=== PATIENT | female | born 1960 | race Caucasian/White ===

== ENCOUNTER 2019-01-12 06:06 | Day surgery (SDC) | payer BC ==
[2019-01-11 08:36] VITALS: BMI 32.0
--- NOTE | 2019-01-12 07:21 | HP ---
History & Physical Update - History History: No Change - Physical Physical: No Change - Assessment Assessment: No Change - Plan Plan: No Change (H&P consistent with 01/06/19 Consent signed and witnessed All questions answered)
[2019-01-12] MEDS ORDERED: IBUPROFEN 600 MG TABLET (FP) PO PRN (07:22)
[2019-01-12] MEDS ORDERED: oxyCODONE HCL 5 MG TABLET PO PRN (07:22)
[2019-01-12] MEDS ORDERED: IBUPROFEN 800 MG/8 ML IJ IVPB PRN (07:22)
[2019-01-12] MEDS ORDERED: ONDANSETRON 4 MG/2 ML VIAL IVPUSH PRN (07:22)
--- NOTE | 2019-01-12 07:24 | OP ---
Operative Note - Note: Operative Date: 01/12/19 Pre-Operative Diagnosis: 58yo P2 with PMB, thick endometrium Operation: Hysteroscopy Findings: Scared uterus and cervix Uterine polyp and fibrous and scar tissue Post-Operative Diagnosis: Same as Pre-op Surgeon: Chica Gustafson Anesthesiologist/SHOE SPRAYER: Alanna Ballard Anesthesia: MAC Specimens Removed: Endometrial scar tissue. Endometrial curretings. Endometrial polyp Estimated Blood Loss (mls): 1 Drains, Volume Out (mls): 200 Fluid Volume Replaced (mls): 1,000 Operative Report Dictated: Yes
[2019-01-12] MEDS ORDERED: PROPOFOL 20 ML ONE ×2 (07:25→07:42)
[2019-01-12] MEDS ORDERED: DEXAMETHASONE SOD PHOSPHATE 4 MG/1 ML VIAL ONE (07:25)
[2019-01-12] MEDS ORDERED: LIDOCAINE HCL/PF 2% SDV 5ML VIAL ONE (07:25)
[2019-01-12] MEDS ORDERED: SUCCINYLCHOLINE CHLORIDE 200 MG/10 ML VIAL ONE (07:26)
[2019-01-12] MEDS ORDERED: MIDAZOLAM HCL 2 MG/2 ML SINGLE DOSE VIAL ONE (07:26)
[2019-01-12] MEDS ORDERED: ELECTROLYTE-148 SOLN 1,000 ML IV SCH (07:30)
[2019-01-12] MEDS ORDERED: ePHEDrine SULFATE 50 MG/1 ML AMPULE ONE (07:59)
[2019-01-12] MEDS ORDERED: KETOROLAC TROMETHAMINE 30 MG/1 ML VIAL ONE (08:07)
[2019-01-12] MEDS ORDERED: PHENYLEPHRINE HCL 10 MG/1 ML SINGLE DOSE VIAL ONE (08:11)
[2019-01-12] MEDS ORDERED: ERTAPENEM SODIUM 1 GM VIAL ONE (08:47)
[2019-01-12 10:20] VITALS: TEMP 97.3
[2019-01-12] MEDS ORDERED: LACTATED RINGERS SOLUTION 1,000 ML IV SCH (10:45)
[2019-01-12 11:51] VITALS: BP 116/69; PULSE 100
--- NOTE | 2019-01-12 20:28 | OP ---
DATE OF OPERATION: 01/12/2019 PREOPERATIVE DIAGNOSES: A 58-year-old para 2 with postmenopausal bleeding and thick endometrium. SURGERY: Hysteroscopy, lysis of scar tissue and adhesions, polypectomy, partial myomectomy. FINDINGS: Scarred uterus and cervix, uterine polyp, and fibrous scar tissue inside the uterus. POSTOPERATIVE DIAGNOSES: A 58-year-old para 2 with postmenopausal bleeding and thick endometrium. SURGEON: Chica Gustafson MD ANESTHESIOLOGIST: GAYATHRI Thurman ANESTHESIA: MAC. SPECIMEN REMOVED: Endometrial scar tissue, endometrial curettings, endometrial polyps. DESCRIPTION OF OPERATIVE PROCEDURE: After assuring informed consent, patient was brought to the operating room where she was placed in dorsal lithotomy position. Perineum and vagina were prepped and draped in sterile fashion. Cervix was gradually dilated to accommodate 6.3-mm hysteroscope. Symphion hysteroscope was assembled, wide balanced, and primed and inserted into the uterine cavity without any difficulty. The survey of the endometrium was performed with the above findings. The resectoscope was introduced through the operative channel, and resection of the scar tissue, polyps, and some fibrous material was performed until uterine cavity was mostly clear of polyps and scar tissue. Uterine cavity was found to be very small, approximately 5 cm. Subsequently, the instruments were removed from uterus, cervix, and vagina. Instrument, sponge count was correct x2. Excellent hemostasis was achieved. Estimated blood loss was 1 mL. Urine output was 200 mL. Patient received 1000 mL of IV fluids. Fluid deficit was 100 mL. Patient was brought to the recovery room in stable condition. Dayron [id number]
--- NOTE | 2019-01-13 16:49 | PATH ---
Surgical Pathology Report Patient Name: ROJAS BISHOP Med. Rec. #: [id number] /Age/Gender: 1960 (Age: 58) / F Account: [id number] Location: [facility] SURGICAL Taken: 01/12/2019 Received: 01/12/2019 Reported: 01/13/2019 Physicians: Chica Gustafson M.D. Specimen(s) Received ENDOMETRIAL POLYP Clinical History Endometrial polyp, abnormal urine/vaginal bleeding Final Diagnosis ENDOMETRIAL POLYP, POLYPECTOMY FRAGMENTS OF ENDOCERVICAL POLYP. SEPARATE FRAGMENTS OF ENDOCERVICAL TISSUE WITH SQUAMOUS METAPLASIA. NO ENDOMETRIAL TISSUE PRESENT. Electronically Signed John Smith M.D. Gross Description Received in formalin labeled "uterine polyp, scar tissue/possible fibroid," is a 3.8 x 3.5 x 0.5 cm aggregate of gelatinous material, containing soft tissue fragments. The formalin is filtered and the specimen is entirely submitted in 2 cassettes. /01/12/2019 saudi01/12/2019
== END 2019-01-12 11:50 | disposition home or self-care (01) ==
LOC: JASU-SURG 06:06
PROVIDERS: ATTEND Obstetrics & Gynecology
PROC: 0UJD8ZZ Inspection of Uterus and Cervix, Via Natural or Artificial Opening Endoscopic (ICD-10-PCS; 2019-01-12)
PROC: 0UB97ZX Excision of Uterus, Via Natural or Artificial Opening, Diagnostic (ICD-10-PCS; principal; 2019-01-12 07:30)
PROC: 0UDB7ZX Extraction of Endometrium, Via Natural or Artificial Opening, Diagnostic (ICD-10-PCS; 2019-01-12 07:30)
DX: N95.0 Postmenopausal bleeding (principal); N84.0 Polyp of corpus uteri
CPT/HCPCS: 71046-TC-FY; 88305-TC; 94760